=== PATIENT | male | born 1980 | race Asian ===

== ENCOUNTER 2024-06-09 02:17 | Emergency (ER) | payer MEDICARE, MEDICAID, SELFPAY ==
[2024-06-09 02:18] VITALS: BMI 32.8
[2024-06-09 02:28] VITALS: BP 180/101; BP 191/133; PULSE 96; RESP 18; TEMP 37.1; O2SAT 97
--- NOTE | 2024-06-09 02:42 | PD.EDURI ---
Upper Respiratory Inf. RME/HPI General Chief Complaint: Flu Like Symptoms Stated Complaint: NASAL CONGESTION Time Seen by Provider: 06/09/24 02:22 Source: patient Arrival date/time: 06/09/24 02:17 44-year-old male past medical history of hypertension noncompliant presents emergency department complaining of nasal congestion and cough that started today. Patient denies any fever, chills, sore throat, vomiting, difficulty breathing, or any other associated symptom. Patient denies any headache, visual disturbances, dizziness, or any other associated symptom. Mode of arrival: ambulatory Limitations: no limitations Related Data Home Medications ?Medication ?Instructions ?Recorded ?Confirmed divalproex 500 mg tablet,delayed 500 mg PO TID 10/04/20 10/04/20 release quetiapine 200 mg tablet 200 mg PO DAILY 10/04/20 10/04/20 quetiapine 300 mg tablet,extended 300 mg PO DAILY 10/04/20 10/04/20 release 24 hr (Seroquel XR) Previous Rx's ?Medication ?Instructions ?Recorded hydrocodone 5 mg-acetaminophen 325 1 tab PO TID PRN pain #10 tabs 10/04/20 mg tablet tamsulosin 0.4 mg capsule (Flomax) 0.4 mg PO QDAY #7 caps 10/04/20 metoclopramide HCl 10 mg tablet 10 mg PO Q6H PRN nausea and 10/18/20 (Reglan) vomiting #20 tabs psyllium husk 3 gram/5.4 gram oral 1 tbsp PO QDAY #284 grams 10/20/20 powder fluticasone propionate 50 2 spray intranasal QDAY #16 grams 06/09/24 mcg/actuation nasal spray,suspension (Flonase Allergy Relief) ibuprofen 600 mg tablet 600 mg PO Q8H PRN pain #20 tabs 06/09/24 oseltamivir 75 mg capsule (Tamiflu) 75 mg PO BID 5 days #10 caps 06/09/24 Allergies Allergy/AdvReac Type Severity Reaction Status Date / Time aripiprazole (From Abilify) Allergy Severe CAUSES Verified 10/22/20 08:24 VIOLENT BEHAVIOR ziprasidone (From Geodon) Allergy Severe DROPS K+ Verified 10/22/20 08:24 Review of Systems Review of Systems Systems Reviewed: All systems reviewed, normal except as documented Constitutional Constitutional: Reports system reviewed and no additional complaints, except as documented, Denies body ache(s), Denies chills and Denies fever(s) Eyes Eyes: Reports system reviewed and no additional complaints, except as documented and Denies change in vision ENT Ears, Nose, Mouth, and Throat: Reports system reviewed and no additional complaints, except as documented, Denies disequilibrium, Denies dizziness, Reports nasal congestion, Denies sore throat and Denies vertigo Cardiovascular Cardiovascular: Reports system reviewed and no additional complaints, except as documented, Denies chest pain and Denies dyspnea Respiratory Respiratory: Reports system reviewed and no additional complaints, except as documented, Denies chest congestion, Reports cough and Denies dyspnea Gastrointestinal Gastrointestinal: Reports system reviewed and no additional complaints, except as documented, Denies abdominal pain, Denies nausea and Denies vomiting Musculoskeletal Musculoskeletal: Reports system reviewed and no additional complaints, except as documented, Denies abnormal gait and Denies arthralgias Integumentary/Breasts Skin/Breast: Reports system reviewed and no additional complaints, except as documented, Denies erythema, Denies rash and Denies wounds Neurologic Neurologic: Reports system reviewed and no additional complaints, except as documented, Denies abnormal gait, Denies disequilibrium, Denies dizziness and Denies vertigo Past Medical History Past Medical History CARDIAC: Positive Hypertension; Negative Cardiac Disorders or Congestive Heart Failure RESPIRATORY: Negative Chronic Obstructive Pulmonary Disease (COPD) or Asthma GASTROINTESTINAL: Positive Gastrointestinal Disorders and Gastroesophageal Reflux Disease GENITOURINARY: Negative Renal Disease ENDOCRINE: Negative Diabetes Mellitus Type 1 or Diabetes Mellitus Type 2 HEMATOLOGIC: Negative Sickle Cell Disease PSYCHO/SOCIAL: Positive Psychiatric Problems and Schizophrenia Social History SMOKING STATUS: Current every day smoker SUBSTANCE USE: methamphetamine ED Exam General Limitations: Present no limitations General appearance: Present alert and in no apparent distress Head Head exam: Present atraumatic Eye Eye exam: Present normal appearance, PERRL and EOMI ENT ENT exam: Present normal exam, normal oropharynx and mucous membranes moist Neck Neck exam: Present normal inspection, full ROM and trachea midline Chest Chest inspection: Present normal inspection and symmetric chest wall rise Respiratory Respiratory exam: Present normal lung sounds bilaterally Cardiovascular Cardiovascular exam: Present regular rate, normal rhythm and normal heart sounds Abdominal Exam Abdominal exam: Present soft and normal bowel sounds Extremities Exam Extremities exam: Present normal inspection and full ROM Back Exam Back exam: Present normal inspection and full ROM Neurological Exam Neurological exam: Present alert, oriented X3 and CN II-XII intact Psychiatric Psychiatric exam: Present normal affect and normal mood Skin Skin exam: Present warm, dry, intact and normal color Course Quality Measures none Orders Category Date Time Status Bedside COVID-19 Antigen Test NOW Care 06/09/24 02:41 Active Bedside Influenza A&B Antigen Test NOW Care 06/09/24 02:42 Completed Ibuprofen Tab [Motrin Tab] Med 06/09/24 02:43 Discontinued 800 mg PO X1 ONE Oseltamivir [Tamiflu] Med 06/09/24 02:43 Discontinued 75 mg PO X1 ONE Vital Signs Vital signs: Vital Signs Temperature 98.8 F 06/09/24 02:28 Pulse Rate 96 06/09/24 02:28 Respiratory Rate 18 06/09/24 02:28 Blood Pressure 180/101 H 06/09/24 02:28 Pulse Oximetry (%) 97 06/09/24 02:28 Oxygen Delivery Method Room Air 06/09/24 02:28 97% room air within normal limits Upper Respiratory Infection MDM Narrative MDM Narrative:: 44-year-old male past medical history of hypertension noncompliant presents emergency department complaining of nasal congestion and cough that started today. Patient denies any fever, chills, sore throat, vomiting, difficulty breathing, or any other associated symptom. Patient denies any headache, visual disturbances, dizziness, or any other associated symptom. No adventitious lung sounds on auscultation. No tenderness to sinuses during palpation but did observe boggy nasal turbinates with rhinorrhea. Influenza positive. Symptom onset within 48 hours discharge Tamiflu and given Flonase nasal spray for nasal congestion. Patient's elevated blood pressure patient declining any treatment for his elevated blood pressure patient reports has a history of high blood pressure was prescribed medication but patient has refused to take treatment. Offered treatment of blood pressure during this visit patient declined explained risks such as stroke or heart attack patient understood risks but reports will decline and follow-up with primary care provider. Patient GCS of 15 with steady gait. Instructed to return to the emergency department for any worsening symptoms. Patient data External records reviewed:: [facility] previous records Clinical information provided by:: patient Social determinants that could affect healthcare access:: none Patient has the following chronic illnesses:: See chart How is presenting disease/condition affected by chronic disease/condition?: uneffected by Evaluation data The following diagnostics were reviewed and interpreted by me:: lab results Lab and/or radiology exams considered but not ordered:: Ordered Interpretation Summary: Interpreted by me Medications / Prescriptions Medications or Prescriptions considered but not ordered:: Ordered Medication administrations:: Medication Administration History Discontinued Medications Ibuprofen (Ibuprofen Tab 400 Mg Tablet) 800 mg PO X1 ONE Stop: 06/09/24 02:44 Oseltamivir Phosphate (Oseltamivir 75 Mg Capsule) 75 mg PO X1 ONE Stop: 06/09/24 02:44 Given Consultations Consultation(s) initiated? (list below): No Diagnosis Upper Respiratory Differential Diagnosis: upper respiratory infection, otitis media, sinusitis, viral infection, bronchitis, influenza and pharyngitis Most likely diagnosis given after review of the tests above:: Influenza Admission Indicated Admission indicated?: not indicated Admission Request Was there a request for admission?: No Disposition Plan Disposition Plan: Discharge Discharge Attestation Discharge Attestation: The patient and all family members were given an opportunity to ask questions and understood the discharge instructions. Discharge instructions specifically effects, indications for sooner follow up or return to the emergency department, and the expected course of current diagnosis. Patient condition: Stable Discharge Plan Plan Patient Disposition: HOME (Self Care) Disposition Comment: Stable Prescriptions/Referrals Prescriptions/Med Rec: New ibuprofen 600 mg tablet 600 mg PO Q8H PRN (Reason: pain) Qty: 20 0RF oseltamivir [Tamiflu] 75 mg capsule 75 mg PO BID 5 Days Qty: 10 0RF fluticasone propionate [Flonase Allergy Relief] 50 mcg/actuation spray,suspension 2 spray intranasal QDAY Qty: 16 0RF Rx Instructions: administer into each nostril No Action quetiapine 200 mg Tablet 200 mg PO DAILY divalproex 500 mg tablet,delayed release (DR/EC) 500 mg PO TID quetiapine [Seroquel XR] 300 mg Tablet Extended Release 24 Hr 300 mg PO DAILY tamsulosin [Flomax] 0.4 mg capsule 0.4 mg PO QDAY Qty: 7 0RF hydrocodone-acetaminophen 5-325 mg tablet 1 tab PO TID MDD 3 PRN (Reason: pain) Qty: 10 0RF metoclopramide HCl [Reglan] 10 mg tablet 10 mg PO Q6H PRN (Reason: nausea and vomiting) Qty: 20 0RF psyllium husk 3 gram/5.4 gram powder 1 tbsp PO QDAY Qty: 284 0RF Rx Instructions: mix into at least 8 oz of water or juice before administering Problem List Clinical Impression: Influenza Patient/Caregiver Discharge Instructions Discharge Activity: activity as tolerated Education Materials: ED Influenza (Adult) Additional Instructions: Take Tylenol or ibuprofen as needed for fever or pain. Use Flonase as needed for nasal congestion. Take Tamiflu as prescribed. Drink plenty of fluids and get plenty of rest. You declined treatment for your elevated blood pressure I recommend you follow-up with your primary care provider in the next 24 to 48 hours for possible restarting medication to treat your elevated blood pressure. Return immediately to emergency department for any worsening symptoms or as needed. Print Language: Angolan Stand Alone Forms: Mattie Award Info., Patient Portal Info Letter PA/CHARGEBACK SPECIALIST Supervising Physician PA/SYLWIA Supervising Physician: Dr. Kumar
[2024-06-09] MEDS: IBUPROFEN TAB 400 MG TABLET 800 MG PO (02:49)
[2024-06-09] MEDS: OSELTAMIVIR 75 MG CAPSULE PO (02:49)
== END 2024-06-09 02:52 | disposition home or self-care (01) ==
LOC: SERX 03:22
PROVIDERS: Emergency Provider Emergency Medicine; PCP Family Medicine
DX: J11.1 Influenza due to unidentified influenza virus with other respiratory manifestations (principal); I10 Essential (primary) hypertension
CPT/HCPCS: 87400; 87811; 99283; A9270

== ENCOUNTER 2024-08-06 13:30 | Emergency (ER) | payer MEDICARE, MEDICAID, SELFPAY ==
[2024-08-06 13:31] VITALS: BMI 32.8
[2024-08-06 13:46] VITALS: BP 120/79; PULSE 122; RESP 20; TEMP 39.4; O2SAT 99
--- NOTE | 2024-08-06 13:57 | PD.EDRME ---
Rapid Medical Screening Exam RME Arrival date/time: 08/06/24 13:30 44-year-old male presents to the emergency department complaints of fever, abdominal pain 1 day. I have greeted and performed a focused initial assessment of this patient. Initial appropriate labs ordered at this time. A comprehensive ED assessment and evaluation of the patient and analysis of all test and completion of medical decision making process will be conducted by additional ED provider. Chief Complaint: Abdominal Pain Time Seen by Provider: 08/06/24 13:45 Vital signs: Vital Signs Temperature 103 F H 08/06/24 13:46 Pulse Rate 122 H 08/06/24 13:46 Respiratory Rate 20 08/06/24 13:46 Blood Pressure 120/79 08/06/24 13:46 Pulse Oximetry (%) 99 08/06/24 13:46 Oxygen Delivery Method Room Air 08/06/24 13:46
[2024-08-06 14:02] VITALS: TEMP 39.4
[2024-08-06] MEDS: ACETAMINOPHEN 500 MG TABLET 1000 MG PO (14:02)
--- NOTE | 2024-08-06 14:04 | PC.NURSE ---
sepsis alert called
--- NOTE | 2024-08-06 14:05 | EKG_ITS ---
[facility] Test Date: 2024-08-06 Pat Name: ROSAS WADE Department: Room: - Gender: Male Study Manager: : 1980 Requested By: Flora Tubbs ([facility]) Speedy Order Number: [id number] Reading MD: Flora Tubbs ([facility]) Speedy Measurements Intervals [place] Rate: 102 P: 76 MI: 142 QRS: 61 QRSD: 89 T: 70 QT: 325 QTc: 425 Interpretive Statements SINUS TACHYCARDIA NONSPECIFIC T-WAVE ABNORMALITY ABNORMAL RHYTHM ECG Compared to ECG 10/18/2020 11:18:29 T-wave abnormality now present Sinus rhythm no longer present /store/S0/[id number].pdf
[2024-08-06 14:28] LABS: Lactate (Lactic Acid) 2.1 mMol/L (0.4-2.0)
[2024-08-06 14:37] LABS: Basophils % (Auto) 0 % (0-2.5); Eosinophils % (Auto) 0 % (0-10); Hematocrit 44.3 % (41.0-53.0); Hemoglobin 14.9 g/dL (13.5-16.0); Immature Granulocytes % (Auto) 0 % (0-0); Immature Granulocytes Auto 0.03 Thou/mm3 (0.00-0.00); Lymphocytes % (Auto) 9 % (10-50); Mean Corpuscular HGB Conc 33.6 g/dl (31.0-37.0); Mean Corpuscular Volume 71 fL (80-100); Monocytes # (Auto) 1.1 Thou/mm3 (0.0-0.8); Monocytes % (Auto) 10 % (0-12); Neutrophils # (Auto) 9.4 Thou/mm3 (1.8-7.7); Neutrophils % (Auto) 81 % (37-80); Nucleated Red Blood Cell % 0 /100 WBC (0); Platelet Count 271 Thou/mm3 (140-440); RDW Standard Deviation 35.7 fL (35.1-43.9); Red Blood Count 6.21 Miln/mm3 (4.50-5.90); White Blood Count 11.6 Thou/mm3 (3.8-10.6)
[2024-08-06 14:57] LABS: Alanine Aminotransferase 53 U/L (10-49); Albumin, Serum 4.5 gm/dL (3.5-5.0); Albumin/Globulin Ratio 1.6 (1.2-2.2); Alkaline Phosphatase 98 U/L (46-116); Anion Gap 8 (7-16); Aspartate Amino Transferase 23 U/L (0-34); BUN/Creatinine Ratio 6 Ratio (12-20); Bilirubin,Total 0.6 mg/dL (0.3-1.2); Blood Urea Nitrogen 9 mg/dL (9-23); C-Reactive Protein 4.5 mg/dL (0.0-0.9); Calcium 9.9 mg/dL (8.3-10.6); Calcium (Corrected) 9.9 mg/dL (8.5-10.1); Carbon Dioxide 27.7 mMol/L (20.0-31.0); Chloride 102 mMol/L (98-107); Creatinine (Component) 1.4 mg/dL (0.6-1.3); Estimated Creatinine Clearance 83.6 mL/min (>60); Globulin 2.8 gm/dL (2.3-3.5); Glucose 117 mg/dL (74-106); Lipase 29 U/L (12-53); Osmolality,Calculated 275 (275-295); Potassium 3.7 mMol/L (3.4-5.1); Procalcitonin 0.15 ng/ml (0.0-0.49); Sodium 138 mMol/L (136-145); Total Protein 7.3 gm/dL (5.7-8.2); Troponin I 0.022 ng/mL (0.0-0.045); eGFR > 60 See Note
[2024-08-06 17:28] LABS: Reflex Lactate? Y
--- NOTE | 2024-08-06 18:54 | PC.NURSE ---
NO ANSWER FOR CT
== END 2024-08-06 16:46 | disposition left against medical advice (07) ==
LOC: SERX 14:22
PROVIDERS: Nurse Practitioner Primary Care; Emergency Provider Family Medicine; PCP Family Medicine
DX: R50.9 Fever, unspecified (principal); R10.9 Unspecified abdominal pain; Z53.29 Procedure and treatment not carried out because of patient's decision for other reasons
CPT/HCPCS: 36415; 80053; 80307; 81001; 83605; 83690; 84145; 84484; 85025; 86140; 87040; 87400; 87811; 93005; 99281; A9270

== ENCOUNTER 2024-08-06 22:38 | Emergency (ER) | payer MEDICARE, MEDICAID, SELFPAY ==
[2024-08-06 22:40] VITALS: BP 112/68; PULSE 113; RESP 18; TEMP 39.4; O2SAT 96
[2024-08-06 22:42] VITALS: BMI 32.8
--- NOTE | 2024-08-06 23:27 | EKG_ITS ---
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
--- NOTE | 2024-08-06 23:27 | XR_ITS ---
Examination: AP chest single view TECHNIQUE: AP portable semiupright chest single view Exam date and time: August 06, 2024, 11:44 PM Comparison October 18, 2020. INDICATIONS: Sepsis alert, chest and abdominal pain today FINDINGS: Normal heart size No pneumonia or pulmonary edema. The osseous structures are intact IMPRESSION: No active disease
--- NOTE | 2024-08-06 23:27 | XR_ITS ---
Examination: CT abdomen with intravenous contrast CT pelvis with intravenous contrast 2-D coronal reconstructions 2-D sagittal reconstructions Date and time of exam:August 07, 2024 0041 hours INDICATIONS: Onset lower abdominal pain today CTDI: vol (mGy) 9.6 DLP: (mGycm) 663 Technique: Multiple axial sections of the abdomen and pelvis have been obtained. 64 slice high-resolution scanner used. 3 mm axial sections have been obtained, post intravenous injection 60 cc [id number] 2-D sagittal, coronal reconstructions obtained. Low dose protocols were performed. One or more of the following dose reduction techniques were used; automated exposure control, adjustment of the mA and/or KV according to patient size, use of iterative reconstruction technique. Findings: No focal liver or splenic lesions No gallstones No pancreatic mass No renal or ureteral calculi, no hydronephrosis Mild wall thickening diffusely involving the colon Appendix is mildly thickened but no periappendiceal inflammatory change Mild diffuse thickening urinary bladder wall Advanced disc narrowing L5-S1 IMPRESSION: Diffuse nonspecific colitis pattern Cystitis pattern
[2024-08-06 23:44] VITALS: PULSE 99
[2024-08-06] MEDS: SODIUM CHLORIDE 0.9% 1000 ML 2,259 ML 2259 ML IV (23:51)
[2024-08-06] MEDS: ACETAMINOPHEN IVPB 1,000 MG/100 ML VIAL 250 MG IV (23:57)
[2024-08-06] MEDS: PIPER/TAZO INJ 4.5 GM in SODIUM CHLORIDE 0.9% (POP) 100 ML IV (23:58)
[2024-08-06 23:59] LABS: Lactate (Lactic Acid) 1.3 mMol/L (0.4-2.0)
[2024-08-07] MEDS: DOXYCYCLINE INJ 100 MG in SODIUM CHLORIDE 0.9% (POP) 100 ML IV (00:06)
[2024-08-07 00:10] LABS: Basophils % (Auto) 0 % (0-2.5); Eosinophils % (Auto) 0 % (0-10); Hematocrit 43.1 % (41.0-53.0); Hemoglobin 14.3 g/dL (13.5-16.0); Immature Granulocytes % (Auto) 0 % (0-0); Immature Granulocytes Auto 0.03 Thou/mm3 (0.00-0.00); Lymphocytes # (Auto) 0.9 Thou/mm3 (1.0-4.8); Lymphocytes % (Auto) 9 % (10-50); Mean Corpuscular HGB Conc 33.2 g/dl (31.0-37.0); Mean Corpuscular Hemoglobin 23.7 pg (25.0-35.0); Mean Corpuscular Volume 71 fL (80-100); Monocytes # (Auto) 1.1 Thou/mm3 (0.0-0.8); Monocytes % (Auto) 11 % (0-12); Neutrophils # (Auto) 8.7 Thou/mm3 (1.8-7.7); Neutrophils % (Auto) 80 % (37-80); Nucleated Red Blood Cell % 0 /100 WBC (0); Platelet Count 233 Thou/mm3 (140-440); RDW Standard Deviation 35.6 fL (35.1-43.9); Red Blood Count 6.04 Miln/mm3 (4.50-5.90); White Blood Count 10.8 Thou/mm3 (3.8-10.6)
[2024-08-07 00:19] LABS: INR 1.1 (0.9-1.3); Partial Thromboplastin Time 30.2 Seconds (22.0-36.0); Prothrombin Time 11.6 Seconds (9.0-12.2)
--- NOTE | 2024-08-07 00:26 | EDNOTE_ITS ---
ED Abdominal Pain RME/HPI General Chief Complaint: Abdominal Pain Stated complaint: ABD PAIN Time seen by provider: 08/06/24 23:27 Arrival date/time: 08/06/24 22:38 RME / HPI RME / HPI narrative: Dr. Hendrickson?s Main ED Evaluation: 44yo male presents to the ED for a chief complaint of lower abdominal pain x today. Patient states he was seen here today, but left prior to getting a diagnosis. He states his pain persisted and he developed a fever at home, so he called 911 to come in for evaluation. He denies any N/V/D or any other associated symptoms. Related Data Home Medications ?Medication ?Instructions ?Recorded ?Confirmed divalproex 500 mg tablet,delayed 500 mg PO TID 10/04/20 release quetiapine 200 mg tablet 200 mg PO DAILY 10/04/2005/26 quetiapine 300 mg tablet,extended 300 mg PO DAILY 05/2610/04/20 release 24 hr (Seroquel XR) Previous Rx's ?Medication ?Instructions ?Recorded hydrocodone 5 mg-acetaminophen 325 1 tab PO TID PRN pa in #10 tabs 10/04/20 mg tablet tamsulosin 0.4 mg capsule (Flomax) 0.4 mg PO QDAY #7 c aps 10/04/20 metoclopramide HCl 10 mg tablet 10 mg PO Q6H PRN nause a and 10/18/20 (Reglan) vomiting #20 tabs psyllium husk 3 gram/5.4 gram oral 1 tbsp PO QDAY #284 grams 10/20/20 powder fluticasone propionate 50 2 spray intranasal QDAY #16 grams 06/09/24 mcg/actuation nasal spray,suspension (Flonase Allergy Relief) ibuprofen 600 mg tablet 600 mg PO Q8H PRN pain #20 t abs 06/09/24 acetaminophen 500 mg tablet 1,000 mg (2 x 500 mg) PO Q 6H PRN 08/07/24 fever or pain 5 days #30 tabs ibuprofen 600 mg tablet 600 mg PO Q6H PRN fever or p ain 5 08/07/24 days #20 tabs Allergies Allergy/AdvReac Type Severity Reaction Status Date / Time aripiprazole (From [facility]) Allergy Severe CAUSES Verified 08/06/24 13:31 VIOLENT BEHAVIOR ziprasidone (From [facility]) Allergy Severe DROPS K+ Verified 08/06/24 13:31 Review of Systems Review of Systems Systems Reviewed: All systems reviewed, normal except as documented Past Medical History Past Medical History CARDIAC: Positive Hypertension; Negative Cardiac Disorders or Congestive Heart Failure RESPIRATORY: Negative Chronic Obstructive Pulmonary Disease (COPD) or Asthma GASTROINTESTINAL: Positive Gastrointestinal Disorders and Gastroesophageal Reflux Disease GENITOURINARY: Negative Renal Disease ENDOCRINE: Negative Diabetes Mellitus Type 1 or Diabetes Mellitus Type 2 HEMATOLOGIC: Negative Sickle Cell Disease PSYCHO/SOCIAL: Positive Psychiatric Problems and Schizophrenia Social History SMOKING STATUS: Current some day smoker SUBSTANCE USE: methamphetamine ED Exam Narrative Physical exam: GENERAL APPEARANCE: alert and oriented x 4, well-developed, well-nourished, no acute distress VITALS: All vitals were reviewed and the pulse ox is 96% on room air, which is normal according to my interpretation. HEENT: Normocephalic, atraumatic; pupils equal, round, reactive to light; EOMI; mucous membranes pink, moist; oropharynx clear NECK: Supple LUNGS: CTABL; no wheezes, no rales, no rhonchi HEART: Regular rate, regular rhythm; normal S1, S2; no murmurs ABDOMEN: non distended; normal BS; soft, mild tenderness at the RLQ, LLQ, and suprapubic region; no guarding, no rebound; no masses, no organomegaly, no hernia BACK: no CVA tenderness EXTREMITIES: atraumatic; no edema NEUROLOGIC: awake; alert and oriented x4; cranial nerves II-XII grossly intact; no focal sensory or motor deficits PSYCHIATRIC: appropriate mood and affect SKIN: warm, dry, normal color; no rashes Course Course Course Narrative: 2309: Sepsis alert initiated. Orders made at this time are congruent with ED Adult Sepsis Order List. Re-evaluation is to be completed. 0057: NS IVF infused. 0127: Sepsis reassessment performed consisting of lab review, vitals, physical exam including auscultation of heart, lungs, and visual evaluation of capillary refills, mucosal membranes and extremities. Quality Measures Possible source: GI tract/intra-abdominal and genitourinary Blood cultures ordered: yes Antibiotic ordered: Yes Pertinent labs: 08/06/24 23:45 Lactic Acid 1.3 mMol/L (0.4-2.0) Procalcitonin 0.20 ng/ml (0.0-0.49) sepsis Orders Category Date Time Status CT Screening NOW Care 08/06/24 23:29 Completed Research Rec[employer]iter STAT Care 08/06/24 23:27 Completed Continuous Pulse Oximetry STAT Care 08/06/24 23:27 Completed EKG (ED ONLY) *Do not use* NOW Care 08/06/24 23:27 Completed In and Out Catheter X1PRN Care 08/06/24 23:27 Completed Insert IV NOW Care 08/06/24 23:27 Completed NPO STAT Care 08/06/24 23:27 Completed Strict Intake and Output Routine Care 08/06/24 23:[address] abdomen pelvis w con Stat Exams 08/06/24 23:27 Completed EKG (ED Only) Stat Exams 08/06/24 23:27 Ordered XR chest 1V portable Stat Exams 08/06/24 23:27 Completed Arterial Blood Gas Stat Lab 08/07/24 02:07 Completed B-Type Natriuretic Peptide Stat Lab 08/06/24 23:45 Completed Blood Culture (Lab) Stat Lab 08/06/24 23:45 Results CBC Stat Lab 08/06/24 23:45 Completed Comprehensive Metabolic Panel Stat Lab 08/06/24 23:45 Completed LDH (Lactate Dehydrogenase) Stat Lab 08/06/24 23:45 Completed Lactate (Lactic Acid) Stat Lab 08/06/24 23:45 Completed Lipase Stat Lab 08/06/24 23:45 Completed Magnesium Stat Lab 08/06/24 23:45 Completed Partial Thromboplastin Time Stat Lab 08/06/24 23:45 Completed Phosphorous Stat Lab 08/06/24 23:45 Completed Procalcitonin Stat Lab 08/06/24 23:45 Completed Prothrombin Time with INR Stat Lab 08/06/24 23:45 Completed Troponin I Stat Lab 08/06/24 23:45 Completed Urinalysis Stat Lab 08/07/24 01:28 Completed Urine Culture Stat Lab 08/07/24 01:28 Received Acetaminophen Ivpb [Ofirmev Inj] Med 08/06/24 23:33 Discontinued 1,000 mg in 100 ml IV X1 Doxycycline Inj [Vibramycin Inj] 100 mg Med 08/06/24 23:32 Discontinued Sodium Chloride 0.9% (Pop) [NS 0.9% mini bag] 100 ml IV X1 Piper/Tazo Inj [Zosyn Inj] 4.5 gm Med 08/06/24 23:33 Discontinued Sodium Chloride 0.9% (Pop) [NS 0.9% mini bag] 100 ml IV X1 Sodium Chloride 0.9% 1000 ml [Ns] 2,259 ml Med 08/06/24 23:27 Discontinued IV 2,259 mls/hr Vital Signs Vital signs: Vital Signs Temperature 103.0 F H 08/06/24 22:40 Pulse Rate 113 H 08/06/24 22:40 Respiratory Rate 18 08/06/24 22:40 Blood Pressure 112/68 08/06/24 22:40 Pulse Oximetry (%) 96 08/06/24 22:40 Oxygen Delivery Method Room Air 08/06/24 22:40 Abdominal Pain MDM MDM Narrative MDM Narrative:: Scribe Attestation: 08/07/24 - Cesia Hayes am scribing for and in the presence of Dr. Hendrickson. I evaluated the patient at 0038. Patient data External records reviewed:: [facility] previous records (Per chart review, patient was seen here on 06/09/24 for influenza.) Clinical information provided by:: patient Social determinants that could affect healthcare access:: none Patient has the following chronic illnesses:: HTN How is presenting disease/condition affected by chronic disease/condition?: uneffected by Evaluation data The following diagnostics were reviewed and interpreted by me:: lab results, radiology exam(s) and EKG tracing(s) Lab and/or radiology exams considered but not ordered:: none Interpretation Summary: Bedside COVID and Influenza are negative, WBC count is 10.8, PT and INR are normal, PTT is normal, Lactic Acid is 1.3, Procalcitonin is normal, Lipase is normal, UA is unremarkable, according to my interpretation. EKG done at 2348, NSR, rate of 99, normal axis, no ectopy, no acute ischemia, according to my interpretation. -------- [facility] Report Signed Patient: ROSAS WADE. Record#: [id number] Birthdate: 1980 Age/Sex: 44 / M Location: [facility] Attending Dr: Ordering Physician: Baldev Hendrickson MD Date of Service: 08/06/24 Procedure(s): XR chest 1V portable Accession Number(s): [id number] cc: Wojciech Kendall MD; Baldev Hendrickson MD~ Examination: AP chest single view TECHNIQUE: AP portable semiupright chest single view Exam date and time: August 06, 2024, 11:44 PM Comparison October 18, 2020. INDICATIONS: Sepsis alert, chest and abdominal pain today FINDINGS: Normal heart size No pneumonia or pulmonary edema. The osseous structures are intact IMPRESSION: No active disease Dictated By: Wojciech Kendall MD Signed By: <Electronically signed by Wojciech Kendall MD in OV> 08/06/24 2358 [place] Preliminary Report Draft Patient: ROSAS WADE. Record#: [id number] Birthdate: 1980 Age/Sex: 44 / M Location: [facility] Attending Dr: Ordering Physician: Date of Service: Procedure(s): Accession Number(s): cc: ~ CT scan of the abdomen and pelvis with intravenous contrast (axial sections with sagittal and coronal reformats) August 07, 2024 at 0041 hours Clinical History: Lower abdominal pain. Comparison: None available at the time of this report. Findings: Mild right lower lobe atelectasis. The liver, gallbladder, pancreas, spleen, kidneys and adrenals are unremarkable. No evidence of bowel obstruction. The appendix is within normal limits. Thickening of the colonic wall without peripheral fat stranding. There is no mesenteric or retroperitoneal adenopathy. Urinary bladder wall thickening. There is no free fluid or free air. The osseous structures are unremarkable. Impression: Urinary bladder wall thickening, possibly due to cystitis or possibly due to chronic urinary retention. Please, correlate clinically. Probable mild colitis. Report Electronically Signed By: Gurwinder Brown 08/07/2024 1:45:12 AM Medications / Prescriptions Medications or Prescriptions considered but not ordered:: none Medication administrations:: Medication Administration History Discontinued Medications Sodium Chloride (Ns) 2,259 mls @ 2,259 mls/hr 30 ml/kg infuse over 60 min (2259 ml) IV .Q1H ONE Stop: 08/07/24 00:26 Last Infusion: 08/07/24 00:57 Dose: Infused Documented By: Admin: 08/06/24 23:51 Dose: 2,259 mls/hr Documented By: CB Piperacillin Sod/Tazobactam (Sod 4.5 gm/ Sodium Chloride) 100 mls @ 200 mls/hr IV X1 ONE Stop: 08/07/24 00:02 Last Infusion: 08/07/24 00:28 Dose: Infused Documented By: Admin: 08/06/24 23:58 Dose: 200 mls/hr Documented By: LEE Doxycycline Hyclate 100 mg/ (Sodium Chloride) 100 mls @ 100 mls/hr IV X1 ONE Stop: 08/07/24 00:31 Last Infusion: 08/07/24 01:10 Dose: Infused Documented By: Admin: 08/07/24 00:06 Dose: 100 mls/hr Documented By: LEE Acetaminophen (Ofirmev Inj) 1,000 mg in 100 mls @ 250 mls/hr IV X1 ONE Stop: 08/06/24 23:56 Last Infusion: 08/07/24 00:57 Dose: Infused Documented By: Admin: 08/06/24 23:57 Dose: 250 mls/hr Documented By: LEE see above Consultations Consultation(s) initiated? (list below): No Diagnosis Differential diagnosis abdominal pain: acute appendicitis, diverticulitis and other (UTI, sepsis) Most likely diagnosis given after review of the tests above:: see clinical impression below Admission Indicated Admission indicated?: not indicated Admission Request Was there a request for admission?: No Disposition Plan Disposition Plan: Discharge Discharge Attestation Discharge Attestation: The patient and all family members were given an opportunity to ask questions and understood the discharge instructions. Discharge instructions specifically effects, indications for sooner follow up or return to the emergency department, and the expected course of current diagnosis. Patient condition: Stable Discharge Plan Plan Patient Disposition: HOME (Self Care) Disposition Comment: Stable for discharge home Patient condition on transfer: Stable Prescriptions/Referrals Prescriptions/Med Rec: New ibuprofen 600 mg tablet 600 mg PO Q6H PRN (Reason: fever or pain) 5 Days Qty: 20 0RF acetaminophen 500 mg tablet 1,000 mg PO Q6H PRN (Reason: fever or pain) 5 Days Qty: 30 0RF No Action quetiapine 200 mg Tablet 200 mg PO DAILY divalproex 500 mg tablet,delayed release (DR/EC) 500 mg PO TID quetiapine [Seroquel XR] 300 mg Tablet Extended Release 24 Hr 300 mg PO DAILY tamsulosin [Flomax] 0.4 mg capsule 0.4 mg PO QDAY Qty: 7 0RF hydrocodone-acetaminophen 5-325 mg tablet 1 tab PO TID MDD 3 PRN (Reason: pain) Qty: 10 0RF metoclopramide HCl [Reglan] 10 mg tablet 10 mg PO Q6H PRN (Reason: nausea and vomiting) Qty: 20 0RF psyllium husk 3 gram/5.4 gram powder 1 tbsp PO QDAY Qty: 284 0RF Rx Instructions: mix into at least 8 oz of water or juice before administering ibuprofen 600 mg tablet 600 mg PO Q8H PRN (Reason: pain) Qty: 20 0RF fluticasone propionate [Flonase Allergy Relief] 50 mcg/actuation spray,suspension 2 spray intranasal QDAY Qty: 16 0RF Rx Instructions: administer into each nostril Referrals: [facility] [Outside] - In 1 week Problem List Clinical Impression: Fever Patient/Caregiver Discharge Instructions Discharge Activity: activity as tolerated Education Materials: ED FUO Adult Additional Instructions: Please return to the emergency department if you have any worsening or any further medical problems and we will help you. Otherwise follow-up with your primary care doctor or in the [facility] within the next several days. I have called in 2 prescriptions at your pharmacy. Ibuprofen and acetaminophen. You should take 1 tab of the ibuprofen and 2 tabs of the acetaminophen at the same time every 6 hours to control your fevers. It is important that you return to the ER if you develop cough or sore throat or more belly pain or vomiting and diarrhea or any other medical problems Print Language: Persian Stand Alone Forms: Mattie Award Info., Patient Portal Info Letter
[2024-08-07 00:43] LABS: Alanine Aminotransferase 44 U/L (10-49); Albumin, Serum 4.2 gm/dL (3.5-5.0); Albumin/Globulin Ratio 1.6 (1.2-2.2); Alkaline Phosphatase 89 U/L (46-116); Anion Gap 9 (7-16); Aspartate Amino Transferase 21 U/L (0-34); BUN/Creatinine Ratio 6 Ratio (12-20); Bilirubin,Total 0.6 mg/dL (0.3-1.2); Blood Urea Nitrogen 9 mg/dL (9-23); Calcium 9.2 mg/dL (8.3-10.6); Calcium (Corrected) 9.2 mg/dL (8.5-10.1); Carbon Dioxide 26.4 mMol/L (20.0-31.0); Chloride 103 mMol/L (98-107); Creatinine (Component) 1.4 mg/dL (0.6-1.3); Estimated Creatinine Clearance 83.6 mL/min (>60); Globulin 2.6 gm/dL (2.3-3.5); Glucose 118 mg/dL (74-106); LDH (Lactate Dehydrogenase) 180 U/L (120-246); Lipase 29 U/L (12-53); Magnesium 1.8 mg/dL (1.6-2.6); Osmolality,Calculated 275 (275-295); Phosphorous 1.6 mg/dL (2.4-5.1); Potassium 3.4 mMol/L (3.4-5.1); Sodium 138 mMol/L (136-145); Total Protein 6.8 gm/dL (5.7-8.2); Troponin I 0.028 ng/mL (0.0-0.045); eGFR > 60 See Note
[2024-08-07 00:54] LABS: B-Type Natriuretic Peptide < 20 pg/mL (0-100)
[2024-08-07 01:09] VITALS: BP 127/76; PULSE 98; RESP 20; TEMP 37.4; O2SAT 98
--- NOTE | 2024-08-07 01:46 | PRELIM_ITS ---
CT scan of the abdomen and pelvis with intravenous contrast (axial sections with sagittal and coronal reformats) August 07, 2024 at 0041 hours Clinical History: Lower abdominal pain. Comparison: None available at the time of this report. Findings: Mild right lower lobe atelectasis. The liver, gallbladder, pancreas, spleen, kidneys and adrenals are unremarkable. No evidence of bowel obstruction. The appendix is within normal limits. Thickening of the colonic wall without peripheral fat stranding. There is no mesenteric or retroperitoneal adenopathy. Urinary bladder wall thickening. There is no free fluid or free air. The osseous structures are unremarkable. Impression: Urinary bladder wall thickening, possibly due to cystitis or possibly due to chronic urinary retention. Please, correlate clinically. Probable mild colitis. Report Electronically Signed By: Gurwinder Brown 08/07/2024 1:45:12 AM [EST]
[2024-08-07 01:58] LABS: Collection Type, Urine Clean Catch
[2024-08-07 02:13] VITALS: BP 130/70; PULSE 95; RESP 19; TEMP 37.5; O2SAT 97
[2024-08-07 02:13] LABS: Base Excess 3 (-3-3); HCO3 27 mEq/L (20-26); O2 Saturation 93 % (91-98); PCO2 42 mmHg (32.0-48.0); PO2 67 mmHg (83-108); pH, Arterial 7.42 (7.35-7.45)
[2024-08-07 02:17] LABS: Inspired Oxygen, FIO2 96 %
[2024-08-07 02:18] LABS: Allen Test Performed/OK; Puncture Site Right Radial
[2024-08-07 02:22] LABS: Bilirubin,Urine Negative (Negative); Blood,Urine Negative (Negative); Clarity,Urine Clear (Clear/Hazy); Color,Urine Lt-Yellow (Lt Yel-Yel); Glucose, Urine Negative (Negative); Ketones,Urine Negative (Negative); Leukocyte Esterase,Urine Negative (Negative); Nitrite,Urine Negative (Negative); PH,Urine 6.5 (5.0-7.0); Protein,Urine Negative (Neg - Trace); RBC,Urine < 1 /hpf (0-3); Specific Gravity,Urine 1.024 (1.001-1.035); Squamous Epithelial Cell,Urine < 1 /hpf (0-5); Urobilinogen,Urine Negative mg/dL (0.0-1.0); WBC,Urine 1 /hpf (0-5)
[2024-08-07 03:12] VITALS: BP 132/72; PULSE 76; RESP 16; TEMP 37.2; O2SAT 98
== END 2024-08-07 03:13 | disposition home or self-care (01) ==
LOC: SERX 08-07 03:15
PROVIDERS: Emergency Provider Emergency Medicine
DX: R50.9 Fever, unspecified (principal); R10.30 Lower abdominal pain, unspecified
CPT/HCPCS: 36415; 36600; 71045; 74177; 80053; 81001; 82803; 83605; 83615; 83690; 83735; 83880; 84100; 84145; 84484; 85025; 85610; 85730; 87040; 87086; 93005; 96365; 96367; 99285; A4649; J0131; J2543; J3490; J7030; Q9967

== ENCOUNTER 2024-08-09 11:44 | Emergency (ER) | payer MEDICARE, MEDICAID, SELFPAY ==
[2024-08-09 12:04] VITALS: BP 148/92; PULSE 83; RESP 18; TEMP 36.6; O2SAT 99; BMI 31.5
--- NOTE | 2024-08-09 12:06 | PD.EDRME ---
Rapid Medical Screening Exam [facility] Arrival date/time: 08/09/24 11:44 44-year-old male with a history of schizophrenia presents to the emergency room with a chief complaint of fevers, chills, abdominal pain x 2 days. Patient states he was seen here in the emergency room on Saturday for the same complaints and his symptoms have progressively gotten worse. Chief Complaint: Abdominal Pain Time Seen by Provider: 08/09/24 11:54 Vital signs: Vital Signs Temperature 97.8 F 08/09/24 12:04 Pulse Rate 83 08/09/24 12:04 Respiratory Rate 18 08/09/24 12:04 Blood Pressure 148/92 H 08/09/24 12:04 Pulse Oximetry (%) 99 08/09/24 12:04 Oxygen Delivery Method Room Air 08/09/24 12:04 Vital signs reviewed by provider: Yes
--- NOTE | 2024-08-09 12:14 | PC.NURSE ---
PATIENT SEEN BY PROVIDER AND PLACED BACK IN LOBBY. PATIENT REQUESTING TO SIGN OUT AMA DUE TO NOT WANTING TO GET THE SAME TESTS LAST NIGHT. NURSE ENCOURAGED PATIENT TO TAKE PREVIOUSLY PRESCRIBED MEDICATION AND TO RETURN TO ED IF SYMPTOMS PERSIST.
== END 2024-08-09 12:00 | disposition left against medical advice (07) ==
LOC: SERX 12:19
PROVIDERS: Emergency Provider Family Medicine
DX: R10.9 Unspecified abdominal pain (principal); R50.9 Fever, unspecified; Z53.21 Procedure and treatment not carried out due to patient leaving prior to being seen by health care provider
CPT/HCPCS: 80053; 80307; 81001; 83880; 84484; 85025; 99281